=== PATIENT | female | born 1980 | race Caucasian/White ===

== ENCOUNTER 2025-04-05 18:24 | Emergency (ER) | payer OTHER ==
[2025-04-05] MEDS ORDERED: HYDROcodone/Acetaminophen 5/325 mg Tablet ONE (20:05)
[2025-04-05] MEDS ORDERED: Cyclobenzaprine 10 MG TAB ONE (20:05)
== END 2025-04-05 20:14 | disposition home or self-care (01) ==
LOC: ERS 18:24
DX: S39.012A Strain of muscle, fascia and tendon of lower back, initial encounter (principal); S80.02XA Contusion of left knee, initial encounter; F17.200 Nicotine dependence, unspecified, uncomplicated; W01.198A Fall on same level from slipping, tripping and stumbling with subsequent striking against other object, initial encounter
CPT/HCPCS: 99283

== ENCOUNTER 2025-05-03 18:59 | Emergency (ER) | payer OTHER ==
[2025-05-03] MEDS ORDERED: Acetaminophen 500 MG TAB ONE (19:18)
[2025-05-03] MEDS ORDERED: Cyclobenzaprine 10 MG TAB ONE (19:19)
[2025-05-03 19:39] LABS: CAUTI Indications for Culture Pelvic or flank pain; Glucose, Urine (Dipstick) Normal (Negative); Leukocyte Negative Leu/uL (Negative); Protein, Urine (Dipstick) Negative (Neg-Trace); RBC/HPF 0-3 HPF (0-3); Specific Gravity, Urine 1.019 (1.002-1.036); WBC/HPF 0-3 HPF (0-3)
[2025-05-03 19:43] LABS: Bacteria/HPF 1+ HPF (None Seen)
[2025-05-03 19:44] LABS: Urine Culture Reflex No No
[2025-05-03] MEDS ORDERED: Ondansetron PF 4 MG/2 ML Vial ONE (20:43)
[2025-05-03 21:17] LABS: #Basophils Less than 0.03 10x3/uL (0.0-0.2); #Eosinophils 0.23 10x3/uL (0.0-0.7); #Monocytes 0.37 10x3/uL (0.11-0.59); #Neutrophils 3.08 10x3/uL (1.40-6.50); %Basophils 0.4 % (0.0-1.0); %Eosinophils 4.3 % (0.0-10.0); %Lymphocytes 29.9 % (21.0-51.0); %Monocytes 7.0 % (0.0-10.0); %Neutrophils 58.0 % (42.0-75.0); Hematocrit 36.3 % (36.0-47.0); Hemoglobin 12.0 g/dL (12.0-16.0); Mean Corpuscular Hemoglobin 31.2 pg (27.0-31.0); Mean Corpuscular Volume 94.3 fL (78.0-98.0); Platelet Count 145 10x3/uL (130-400); Red Blood Cell (RBC) Count 3.85 mill/uL (4.20-5.40); White Blood Cell (WBC) Count 5.31 10x3/uL (4.8-10.8)
[2025-05-03 21:50] LABS: ALT (SGPT) 49 U/L (Less than 34); AST (SGOT) 42 U/L (11-34); Albumin 3.7 g/dL (3.1-4.5); Alkaline Phosphatase 74 U/L (40-110); Anion Gap 14 mmol/L (10-20); BUN (Urea Nitrogen) 9 mg/dL (7.0-18.7); Bilirubin, Total 0.5 mg/dL (0.3-1.2); Calc. Creatinine Clearance 0 mL/min (70-130); Calcium 9.1 mg/dL (7.8-10.44); Carbon Dioxide 25 mmol/L (22-29); Chloride 107 mmol/L (98-107); Globulin 3.4 g/dL (2.4-3.5); Glucose 96 mg/dL (70-105); Potassium 3.6 mmol/L (3.5-5.1); Sodium 142 mmol/L (136-145)
== END 2025-05-04 00:32 | disposition home or self-care (01) ==
LOC: ERS 18:59
DX: K45.8 Other specified abdominal hernia without obstruction or gangrene (principal); F17.290 Nicotine dependence, other tobacco product, uncomplicated
CPT/HCPCS: 72148; 80053; 81001; 85025; 86141; J2270; J2405